=== PATIENT | female | born 1995 | race Two or more races ===

== ENCOUNTER 2021-02-19 10:48 | Emergency (ER) | payer OTHER ==
[2021-02-19 11:23] VITALS: BP 116/78; PULSE 87; TEMP 98.8; BMI 29.9
[2021-02-19] MEDS ORDERED: IBUPROFEN 400 MG TABLET (FP) PO ONE ×2 (11:44→11:48)
[2021-02-19 12:05] LABS: BASO % 2.1 % (0-2.0); EOS % 1.4 % (0-4.5); HEMATOCRIT 35.3 % (32.4-45.2); HEMOGLOBIN 11.8 GM/dl (10.7-15.3); LYMPH % 28.6 % (8-40); MCH 30.9 pg (25.7-33.7); MCHC 33.4 g/dl (32.0-36.0); MEAN CELL VOLUME 92.5 fl (80-96); MEAN PLT VOLUME 8.4 fl (7.5-11.1); MONO % 9.5 % (3.8-10.2); NEUT % 58.4 % (42.8-82.8); PLATELET COUNT 250 10^3/uL (134-434); RBC 3.81 M/mm3 (3.60-5.2); WHITE BLOOD COUNT 4.9 K/mm3 (4.0-10.8)
[2021-02-19 12:14] LABS: HCG,QUALITATIVE URINE Negative
[2021-02-19 12:22] LABS: ALBUMIN 3.6 g/dl (3.4-5.0); BILIRUBIN,TOTAL 0.7 mg/dl (0.2-1); CALCIUM 8.6 mg/dl (8.5-10); CREATININE 0.9 mg/dl (0.55-1.3); TOT PROT 6.6 g/dl (6.4-8.2)
== END 2021-02-19 15:28 | disposition home or self-care (01) ==
LOC: FER 10:48
DX: R10.9 Unspecified abdominal pain (principal)
CPT/HCPCS: 36415; 76705-TC; 76830-TC; 80053; 81003; 84703; 85025; 87086; 99284-25